=== PATIENT | male | born 1965 | race Caucasian/White ===

== ENCOUNTER 2019-02-12 14:35 | Emergency (ER) | payer OTHER ==
[~2019-02-12] VITALS: Ht 177.8 cm; Wt 72.6 kg
[~2019-02-12 14:35] MED LIST: ALPR2TAB7 PO
--- NOTE | 2019-02-12 14:44 | NUR ---
BESSIE NEWMAN AT BEDSIDE FOR MSE.
--- NOTE | 2019-02-12 14:54 | NUR ---
Patient discharged to home in stable conditon. Written and verbal after care instructions given. Patient verbalizes understanding of instructions. ALL BELONGINGS W/ PT. PT SELF-AMBULATED W/O DIFFICULTY.
[2019-02-12 14:55] VITALS: BP 121/79
== END 2019-02-12 14:57 | disposition home or self-care (01) ==
LOC: ER 14:35
DX: L03.113 Cellulitis of right upper limb (principal); F15.10 Other stimulant abuse, uncomplicated; Z79.899 Other long term (current) drug therapy
CPT/HCPCS: A4663